=== PATIENT | male | born 1985 | race Two or more races ===

== ENCOUNTER 2024-01-08 19:27 | Emergency (ER) | payer MEDICAID ==
[2024-01-08] MEDS ORDERED: KETOROLAC TROMETHAMINE 15 MG/ML VIAL ONE (19:52)
[2024-01-08] MEDS ORDERED: dexaMETHasone SOD PHOSPHATE 1 ML ONE (19:52)
[2024-01-08] MEDS: dexaMETHasone SOD PHOSPHATE 10 MG/ML VIAL IM ONE (19:58)
[2024-01-08] MEDS: KETOROLAC TROMETHAMINE 15 MG/ML VIAL IM ONE (19:58)
[2024-01-08] MEDS ORDERED: AMOX-430 PO (20:05)
[2024-01-08] MEDS ORDERED: IBUP-1955 PO (20:05)
[2024-01-08 20:16] VITALS: BP 148/90; TEMP 98.7
== END 2024-01-08 20:17 | disposition home or self-care (01) ==
LOC: ER 19:31
DX: J02.9 Acute pharyngitis, unspecified (principal); H92.02 Otalgia, left ear
CPT/HCPCS: 99284; 96372 ×2; 87070; 87880; J1100; J1885; 86403-TC

== ENCOUNTER 2024-05-09 10:56 | Emergency (ER) | payer SELFPAY ==
[~2024-05-09] VITALS: Ht 177.8 cm; Wt 108.9 kg
[~2024-05-09 10:56] MED LIST: AMOX-430 PO; IBUP-1955 PO
[2024-05-09 11:12] VITALS: BP 132/77; TEMP 99; O2SAT 99
[2024-05-09] MEDS ORDERED: PENI500T PO (11:23)
[2024-05-09] MEDS ORDERED: dexaMETHasone SOD PHOSPHATE 1 ML ONE (11:32)
[2024-05-09] MEDS: dexaMETHasone SOD PHOSPHATE 4 MG/ML VIAL IM ONE (11:36)
== END 2024-05-09 11:50 | disposition home or self-care (01) ==
LOC: ER 11:06
DX: J02.9 Acute pharyngitis, unspecified (principal); M79.10 Myalgia, unspecified site; R50.9 Fever, unspecified; R13.10 Dysphagia, unspecified
CPT/HCPCS: 99283; 96372; 87070; 87880; J1100; 86403-TC